=== PATIENT | male | born 1975 | race Caucasian/White ===

== ENCOUNTER 2020-07-02 04:33 | Day surgery (SDC) | payer OTHER ==
[2020-07-01 12:02] VITALS: BMI 23.3
[2020-07-02] MEDS ORDERED: PROPOFOL 20 ML ONE ×2 (07:32→08:11)
[2020-07-02] MEDS ORDERED: MIDAZOLAM HCL 2 MG/2 ML SINGLE DOSE VIAL ONE ×2 (07:32→07:42)
[2020-07-02] MEDS ORDERED: SUCCINYLCHOLINE CHLORIDE 200 MG/10 ML SYRINGE ONE (07:32)
[2020-07-02] MEDS ORDERED: ceFAZolin SODIUM 1 GM VIAL IVPB ONE (07:54)
[2020-07-02] MEDS ORDERED: BUPIVACAINE HCL/PF 0.5% (5 MG/ML) 30 ML VIAL IJ ONE ×2 (07:57→08:15)
[2020-07-02] MEDS ORDERED: BACITRACIN 15 GM TUBE TOPICAL OINTMENT ONE (08:07)
[2020-07-02] MEDS ORDERED: oxyCODONE HCL 5 MG TABLET PO PRN ×2 (08:20→08:36)
[2020-07-02] MEDS ORDERED: BACITRACIN 15 GM TUBE TOPICAL OINTMENT TP ONE (08:20)
--- NOTE | 2020-07-02 08:22 | OP ---
Operative Note - Note: Operative Date: 07/02/20 Pre-Operative Diagnosis: phimosis Operation: circumcision Post-Operative Diagnosis: Same as Pre-op Surgeon: Angelito Cole Anesthesia: General Specimens Removed: foreskin Estimated Blood Loss (mls): 1 Operative Report Dictated: Yes
[2020-07-02] MEDS ORDERED: DEXTROSE 5%-0.45% SALINE 1,000 ML IV SCH (08:30)
[2020-07-02] MEDS ORDERED: ONDANSETRON 4 MG/2 ML VIAL IVPUSH PRN (08:36)
[2020-07-02] MEDS ORDERED: PROMETHAZINE HCL 25 MG/1 ML VIAL IVPUSH PRN (08:36)
[2020-07-02] MEDS ORDERED: LACTATED RINGERS SOLUTION 1,000 ML IV SCH (08:45)
[2020-07-02 09:48] VITALS: TEMP 96.8
[2020-07-02 10:21] VITALS: BP 133/80; PULSE 61
--- NOTE | 2020-07-03 11:54 | OP ---
DATE OF OPERATION: 07/02/2020 PREOPERATIVE DIAGNOSIS: Phimosis. POSTOPERATIVE DIAGNOSIS: Phimosis. PROCEDURE: Circumcision. SURGEON: Eulalia Leblanc MD INDICATION: Patient is a 44-year-old male with phimotic foreskin, elected to undergo circumcision. Risks, benefits, and alternatives were discussed, including risks of bleeding, infection, scar tissue formation, decreased or increased sensitivity with sexual activity, dissatisfaction with appearance, potential injury to adjacent structures, and potential need for additional procedures. DESCRIPTION OF PROCEDURE: After informed consent was obtained, patient was taken to the OR, placed supine on the operating table. Cardiac monitoring was administered. General anesthesia was established. The penis was prepped and draped in standard surgical fashion. At this point, with the foreskin in its normal anatomic position, a circumferential incision was created at the level of the coronal sulcus. The foreskin was retracted, then the second circumferential incision was created just proximal to the coronal sulcus. This phimotic foreskin with the tight band was then excised in its entirety and sent to pathology for analysis. It was excised with cautery. At this point then, the proximal foreskin was sewn back to the distal skirt of foreskin tissue circumferentially using 3-0 chromic sutures until the foreskin was completely reanastamosed. A dry sterile dressing was then placed with gauze and Coban. Patient then awoken from anesthesia and transferred to recovery room in stable condition. There were no complications. Estimated blood loss was minimal. EULALIA LEBLANC M.D. [id number]
--- NOTE | 2020-07-03 16:54 | PATH ---
Surgical Pathology Report Patient Name: DEV MONTGOMERY Med. Rec. #: [id number] /Age/Gender: 1975 (Age: 44) / M Account: [id number] Location: [facility] Taken: 07/02/2020 Received: 07/02/2020 Reported: 07/03/2020 Physicians: Angelito Cole M.D. Specimen(s) Received FORESK[place] Clinical History Phimosis Final Diagnosis FORESK[place], CIRCUMCISION: SKIN SHOWING NON-SPECIFIC CHRONIC DERMAL INFLAMMATION. Electronically Signed Corina Chappell M.D. Gross Description Received in formalin labeled "foreskin," is a 5.5 x 3.0 x 0.6 cm barroso brown, wrinkled, unoriented portion of skin, consistent with foreskin. A sales service representative section is submitted in one cassette. /07/02/2020 saudi07/02/2020
== END 2020-07-02 10:30 | disposition home or self-care (01) ==
LOC: JASU-SURG 04:33
PROVIDERS: ATTEND Urology
PROC: 0VTTXZZ Resection of Prepuce, External Approach (ICD-10-PCS; principal; 2020-07-02 07:30)
DX: N47.1 Phimosis (principal)
CPT/HCPCS: 88304-TC; 94760